=== PATIENT | female | born 1950 | race Caucasian/White ===

== ENCOUNTER 2023-10-03 08:57 | Emergency (ER) | payer SELFPAY ==
[2023-10-03] MEDS ORDERED: methylPREDNISolone SOD SUCCI 125 MG/2 ML VIAL IV STA (09:13)
[2023-10-03] MEDS ORDERED: IPRATROPIUM 0.5 MG/2.5 ML NEBU INHALATION STA (09:13)
[2023-10-03] MEDS ORDERED: SODIUM CHLORIDE 0.9% 1,000 ML IV STA (09:13)
[2023-10-03] MEDS ORDERED: ALBUTEROL NEBULIZED 2.5 MG/3 ML INHALATION STA (09:13)
--- NOTE | 2023-10-03 09:16 | ED ---
General Adult HPI - General Chief complaint: Shortness of Breath Stated complaint: ALVIN Time Seen by Provider: 10/03/23 09:00 Source: patient, RN notes reviewed, old records reviewed Mode of arrival: ambulatory Limitations: no limitations - History of Present Illness Initial comments: This is a 73-year-old female who presents emergency department with past medical history significant for pulmonary hypertension. Patient comes in today for difficulty breathing. Patient states she started with some upper respiratory symptoms like a cough and some congestion about a week ago. Patient states it's gotten progressively worse and she went to urgent care 2 days ago and has gotten worse and since that she decided come to the emergency department. Patient denies any fever chills. Patient states shortness of breath is significant. Patient states she does not have any breathing machine at home. Patient denies any chest pain or palpitations. Patient denies any back pain. Patient denies any nausea vomiting diarrhea. Patient denies any calf pain or leg swelling - Related Data Home Medications Medication Instructions Recorded Confirmed Ambrisentan 5 mg PO DAILY 10/03/23 10/03/23 Levothyroxine Sodium [Synthroid] 125 mcg PO DAILY 10/03/23 10/03/23 Pramipexole [Mirapex] 1.5 mg PO HS 10/03/23 10/03/23 Rivaroxaban [Xarelto] 20 mg PO HS 10/03/23 10/03/23 hydroCHLOROthiazide [Hydrodiuril] 25 mg PO DAILY 10/03/23 10/03/23 Previous Rx's Medication Instructions Recorded Albuterol Inhaler [Ventolin Hfa 2 puff INHALATION RT-QID #18 gm 10/03/23 Inhaler] predniSONE [Deltasone] 40 mg PO DAILY #8 tab 10/03/23 Allergies Allergy/AdvReac Type Severity Reaction Status Date / Time avocado Allergy Anaphylaxis Verified 10/03/23 10:11 Sulfa (Sulfonamide Allergy Rash/Hives Verified 10/03/23 10:11 Antibiotics) Review of Systems ROS Statement: Those systems with pertinent positive or pertinent negative responses have been documented in the HPI. ROS Other: All systems not noted in ROS Statement are negative. Past Medical History Past Medical History: Heart Failure, Hypertension, Thyroid Disorder Additional Past Medical History / Comment(s): Pulmonary HTN, Restless leg. History of Any Multi-Drug Resistant Organisms: None Reported Past Surgical History: No Surgical Hx Reported Past Psychological History: No Psychological Hx Reported Smoking Status: Never smoker Past Alcohol Use History: Occasional Past Drug Use History: None Reported General Exam - General Exam Comments Initial Comments: GENERAL: Patient is well-developed and well-nourished. Patient is nontoxic and well- hydrated and is in mild distress. ENT: Neck is soft and supple. No significant lymphadenopathy is noted. Oropharynx is clear. Moist mucous membranes. Neck has full range of motion without eliciting any pain. EYES: The sclera were anicteric and conjunctiva were pink and moist. Extraocular movements were intact and pupils were equal round and reactive to light. Eyelids were unremarkable. PULMONARY: Patient has diffuse expiratory wheezing CARDIOVASCULAR: There is a regular rate and rhythm without any murmurs gallops or rubs. ABDOMEN: Soft and nontender with normal bowel sounds. SKIN: Skin is clear with no lesions or rashes and otherwise unremarkable. NEUROLOGIC: Patient is alert and oriented x3. Cranial nerves II through XII are grossly intact. Motor and sensory are also intact. Normal speech, volume and content. Symmetrical smile. MUSCULOSKELETAL: Normal extremities with adequate strength and full range of motion. LYMPHATICS: No significant lymphadenopathy is noted PSYCHIATRIC: Normal psychiatric evaluation. Limitations: no limitations Course Vital Signs 10/03/23 10/03/23 10/03/23 09:00 09:25 09:27 Temperature 98.8 F Pulse Rate 83 73 Respiratory 24 18 18 Rate Blood Pressure 163/95 120/78 O2 Sat by Pulse 85 L 91 L Oximetry 10/03/23 10/03/23 10/03/23 09:50 10:04 10:31 Temperature Pulse Rate 74 77 78 Respiratory 20 20 18 Rate Blood Pressure 131/68 O2 Sat by Pulse 92 L Oximetry 10/03/23 11:15 Temperature Pulse Rate 80 Respiratory 18 Rate Blood Pressure 119/81 O2 Sat by Pulse 84 L Oximetry Medical Decision Making - Medical Decision Making EKG myself. EKG shows a sinus rhythm at 73 bpm VT interval 263 QRS is 96 QT interval 395. QTC is 421. Patient's EKG shows diffuse T wave inversion from V1 through V5 as well as inferior leads II, III, and F aVF. Was pt. sent in by a medical professional or institution (, PA, CHIEF CONSOLE OPERATOR, urgent care, hospital, or retirement...) When possible be specific @ -No Did you speak to anyone other than the patient for history (EMS, parent, family, police, friend...)? What history was obtained from this source @ -No Did you review nursing and triage notes (agree or disagree)? Why? @ -I reviewed and agree with nursing and triage notes Were old charts reviewed (outside hosp., previous admission, EMS record, old EKG, old radiological studies, urgent care reports/EKG's, retirement records)? Report findings @ -No old charts were reviewed Differential Diagnosis (chest pain, altered mental status, abdominal pain women, abdominal pain men, vaginal bleeding, weakness, fever, dyspnea, syncope, headache, dizziness, GI bleed, back pain, seizure, CVA, palpatations, mental health, musculoskeletal)? @ -Differential dyspnea EKG interpreted by me (3pts min.). @ -As above X-rays interpreted by me (1pt min.). @ -Chest x-ray showed concerning areas that were masslike near the hilum on both sides of the chest. CT interpreted by me (1pt min.). @ -None done U/S interpreted by me (1pt. min.). @ -None done What testing was considered but not performed or refused? (CT, X-rays, U/S, labs)? Why? @ -I ordered a computed tomography scan but patient refused to have it done What meds were considered but not given or refused? Why? @ -None Did you discuss the management of the patient with other professionals (professionals i.e. , PA, CHIEF CONSOLE OPERATOR, lab, RT, psych nurse, clinical social work aide, crisis clinician, teacher, safety instruction police officer, casework specialist)? Give summary @ -No Was smoking cessation discussed for >3mins.? @ -No Was critical care preformed (if so, how long)? @ -No Were there social determinants of health that impacted care today? How? (Homelessness, low income, unemployed, alcoholism, drug addiction, transportation, low edu. Level, literacy, decrease access to med. care, nursing home, rehab)? @ -No Was there de-escalation of care discussed even if they declined (Discuss DNR or withdrawal of care, Hospice)? DNR status @ -No What co-morbidities impacted this encounter? (DM, HTN, Smoking, COPD, CAD, Cancer, CVA, ARF, Chemo, Hep., AIDS, mental health diagnosis, sleep apnea, morbid obesity)? @ -None Was patient admitted / discharged? Hospital course, mention meds given and route, prescriptions, significant lab abnormalities, going to OR and other p ertinent info. @ -Patient's chest x-ray showed bilateral opacifications possibly masses. Patient also was oxygenating 84% after 2 breathing treatments and steroids. I told the patient I wonder admit her she refused to do a CAT scan and she refused to be admitted I spoke to her for about 10 minutes and told her the risk she continued to refuse to be admitted or have a CAT scan. The nurse went in and had a similar conversation and she continued to want to go home and sign out AMA Undiagnosed new problem with uncertain prognosis? @ -No Drug Therapy requiring intensive monitoring for toxicity (Heparin, Nitro, Insulin, Cardizem)? @ -No Were any procedures done? @ -No Diagnosis/symptom? @ -Dyspnea Acute, or Chronic, or Acute on Chronic? @ -Acute Uncomplicated (without systemic symptoms) or Complicated (systemic symptoms)? @ -Complicated Side effects of treatment? @ -No Exacerbation, Progression, or Severe Exacerbation? @ -No Poses a threat to life or bodily function? How? (Chest pain, [place], [place], pneumonia, PE, COPD, DKA, ARF, appy, cholecystitis, CVA, Diverticulitis, Homicidal, Suicidal, threat to staff... and all critical care pts) @ -She is hypoxic and this continued end organ dysfunction. Diagnosis/symptom? @ -Lung mass Acute, or Chronic, or Acute on Chronic? @ -Acute Uncomplicated (without systemic symptoms) or Complicated (systemic symptoms)? @ -Complicated Side effects of treatment? @ -none Exacerbation, Progression, or Severe Exacerbation] @ -no Poses a threat to life or bodily function? @ -no - Lab Data Result diagrams: 10/03/23 09:10/03/23 09:31 Lab Results 10/03/23 10/03/23 10/03/23 Range/Units 09:31 09:31 09:31 WBC 6.0 (3.8-10.6) k/uL RBC 4.53 (3.80-5.40) m/uL Hgb 14.4 (11.4-16.0) gm/dL Hct 42.4 (34.0-46.0) % MCV 93.6 (80.0-100.0) fL MCH 31.8 (25.0-35.0) pg MCHC 33.9 (31.0-37.0) g/dL RDW 12.4 (11.5-15.5) % Plt Count 211 (150-450) k/uL MPV 7.6 Neutrophils % 69 % Lymphocytes % 17 % Monocytes % 7 % Eosinophils % 3 % Basophils % 0 % Neutrophils # 4.1 (1.3-7.7) k/uL Lymphocytes # 1.0 (1.0-4.8) k/uL Monocytes # 0.4 (0-1.0) k/uL Eosinophils # 0.2 (0-0.7) k/uL Basophils # 0.0 (0-0.2) k/uL PT 14.5 H (10.0-12.5) sec INR 1.4 H (<1.2) APTT 26.8 (22.0-30.0) sec Sodium 138 (137-145) mmol/L Potassium 3.5 (3.5-5.1) mmol/L Chloride 101 (98-107) mmol/L Carbon Dioxide 28 (22-30) mmol/L Anion Gap 9 mmol/L BUN 9 (7-17) mg/dL Creatinine 0.74 (0.52-1.04) mg/dL Est GFR (CKD-EPI)AfAm >90 (>60 ml/min/1.73 sqM) Est GFR (CKD-EPI)NonAf 80 (>60 ml/min/1.73 sqM) Glucose 107 H (74-99) mg/dL Plasma Lactic Acid Catarino (0.7-2.0) mmol/L Calcium 8.1 L (8.4-10.2) mg/dL Magnesium 2.2 (1.6-2.3) mg/dL Total Bilirubin 1.0 (0.2-1.3) mg/dL AST 27 (14-36) U/L ALT 20 (4-34) U/L Alkaline Phosphatase 54 (38-126) U/L Troponin I (0.000-0.034) ng/mL Total Protein 6.0 L (6.3-8.2) g/dL Albumin 3.0 L (3.5-5.0) g/dL Influenza Type A (PCR) (Not Detectd) Influenza Type B (PCR) (Not Detectd) RSV (PCR) (Not Detectd) SARS-CoV-2 (PCR) (Not Detectd) 10/03/23 10/03/23 10/03/23 Range/Units 09:31 09:31 09:31 WBC (3.8-10.6) k/uL RBC (3.80-5.40) m/uL Hgb (11.4-16.0) gm/dL Hct (34.0-46.0) % MCV (80.0-100.0) fL MCH (25.0-35.0) pg MCHC (31.0-37.0) g/dL RDW (11.5-15.5) % Plt Count (150-450) k/uL MPV Neutrophils % % Lymphocytes % % Monocytes % % Eosinophils % % Basophils % % Neutrophils # (1.3-7.7) k/uL Lymphocytes # (1.0-4.8) k/uL Monocytes # (0-1.0) k/uL Eosinophils # (0-0.7) k/uL Basophils # (0-0.2) k/uL PT (10.0-12.5) sec INR (<1.2) APTT (22.0-30.0) sec Sodium (137-145) mmol/L Potassium (3.5-5.1) mmol/L Chloride (98-107) mmol/L Carbon Dioxide (22-30) mmol/L Anion Gap mmol/L BUN (7-17) mg/dL Creatinine (0.52-1.04) mg/dL Est GFR (CKD-EPI)AfAm (>60 ml/min/1.73 sqM) Est GFR (CKD-EPI)NonAf (>60 ml/min/1.73 sqM) Glucose (74-99) mg/dL Plasma Lactic Acid Catarino 1.0 (0.7-2.0) mmol/L Calcium (8.4-10.2) mg/dL Magnesium (1.6-2.3) mg/dL Total Bilirubin (0.2-1.3) mg/dL AST (14-36) U/L ALT (4-34) U/L Alkaline Phosphatase (38-126) U/L Troponin I 0.012 (0.000-0.034) ng/mL Total Protein (6.3-8.2) g/dL Albumin (3.5-5.0) g/dL Influenza Type A (PCR) Not Detected (Not Detectd) Influenza Type B (PCR) Not Detected (Not Detectd) RSV (PCR) Not Detected (Not Detectd) SARS-CoV-2 (PCR) Not Detected (Not Detectd) Disposition Clinical Impression: Dyspnea, Lung mass Disposition: LEFT AGAINST MEDICAL ADVICE Instructions (If sedation given, give patient instructions): Bronchospasm (ED), Dyspnea (ED) Prescriptions: predniSONE [Deltasone] 40 mg PO DAILY #8 tab Albuterol Inhaler [Ventolin Hfa Inhaler] 2 puff INHALATION RT-QID #18 gm Is patient prescribed a controlled substance at d/c from ED?: No Referrals: None,Stated [REFERRING] - 1-2 days Time of Disposition: 11:34
[2023-10-03 09:44] LABS: Basophils % (A) 0 %; Eosinophils # (A) 0.2 k/uL (0-0.7); Eosinophils % (A) 3 %; HCT 42.4 % (34.0-46.0); HGB 14.4 gm/dL (11.4-16.0); Lymphocytes % (A) 17 %; MCH 31.8 pg (25.0-35.0); MCHC 33.9 g/dL (31.0-37.0); MCV 93.6 fL (80.0-100.0); Mean Platelet Volume 7.6; Monocytes # (A) 0.4 k/uL (0-1.0); Monocytes % (A) 7 %; Neutrophils # (A) 4.1 k/uL (1.3-7.7); Neutrophils % (A) 69 %; Platelet Count 211 k/uL (150-450); RBC 4.53 m/uL (3.80-5.40); RDW 12.4 % (11.5-15.5)
[2023-10-03 09:57] LABS: INR 1.4 (<1.2); Partial Thromboplastin Time 26.8 sec (22.0-30.0); Prothrombin Time 14.5 sec (10.0-12.5)
[2023-10-03 10:04] LABS: ALT 20 U/L (4-34); AST 27 U/L (14-36); African American GFR (CKD) >90 (>60 ml/min/1.73 sqM); Alkaline Phosphatase 54 U/L (38-126); Anion Gap 9 mmol/L; Blood Urea Nitrogen 9 mg/dL (7-17); Calcium 8.1 mg/dL (8.4-10.2); Carbon Dioxide 28 mmol/L (22-30); Chloride 101 mmol/L (98-107); Glucose 107 mg/dL (74-99); Magnesium 2.2 mg/dL (1.6-2.3); Non-African American GFR(CKD) 80 (>60 ml/min/1.73 sqM); Potassium 3.5 mmol/L (3.5-5.1); Sodium 138 mmol/L (137-145)
--- NOTE | 2023-10-03 10:47 | XR ---
EXAMINATION TYPE: XR chest 2V DATE OF EXAM: 10/03/2023 9:46 AM CLINICAL INDICATION:Female, 73 years old with history of difficulty breathing; [facility] COMPARISON: None TECHNIQUE: XR chest 2V. Frontal PA and lateral views of the chest. FINDINGS: Lines/Tubes: EKG leads overlie the chest. No indwelling lines are seen. Heart/mediastinum: Cardiomediastinal silhouette is enlarged. Heart appears mildly enlarged. Partially calcified, somewhat tortuous aorta. There could be mediastinal adenopathy and/or enlargement of the pulmonary arteries. Pulmonary vascularity: Mild pulmonary venous congestion. Lungs/Pleura: Masslike densities over the right hilum and left suprahilar region, concerning for mass es and/or adenopathy. Smaller lung nodules may not be radiographically apparent. There is mild diffus e interstitial coarsening and mild hyperinflation, suggesting a background of COPD. There is otherwis e no evidence of focal airspace consolidation, or pneumothorax. Minimal blunting of the posterior co stophrenic angles, suggesting small effusions. Musculoskeletal: No acute osseous abnormality demonstrated in the limits of the exam. Osteopenia and mild/moderate degenerative changes of the spine and shoulders. Mild height loss of a couple of lower thoracic region vertebrae, age indeterminate. Other findings: None. IMPRESSION: Abnormal examination, as above. Recommend contrast CT chest in the near future for further evaluation .
[2023-10-03 10:49] VITALS: RESP 18
[2023-10-03 11:37] VITALS: BP 118/70; PULSE 80
[2023-10-03 11:38] VITALS: TEMP 98.4
== END 2023-10-03 11:41 | disposition left against medical advice (07) ==
LOC: EC 08:57
DX: R06.00 Dyspnea, unspecified (principal); R91.8 Other nonspecific abnormal finding of lung field; I11.0 Hypertensive heart disease with heart failure; E07.9 Disorder of thyroid, unspecified; I50.9 Heart failure, unspecified; Z79.890 Hormone replacement therapy; Z20.822 Contact with and (suspected) exposure to COVID-19; Z53.29 Procedure and treatment not carried out because of patient's decision for other reasons; Z88.2 Allergy status to sulfonamides; Z88.8 Allergy status to other drugs, medicaments and biological substances
CPT/HCPCS: 36415; 94640; 93005; 80053; 83605; 83735; 84484; 85025; 85610; 85730; 87040; 87077; 87186; 87636; 71046; 99285; 96374; 96361; J2930

== ENCOUNTER 2023-10-03 11:51 | Inpatient (IN) | payer SELFPAY ==
--- NOTE | 2023-10-03 13:08 | ED ---
General Adult HPI - General Chief complaint: Shortness of Breath Stated complaint: Cough Time Seen by Provider: 10/03/23 12:17 Source: patient, RN notes reviewed, old records reviewed Mode of arrival: ambulatory Limitations: no limitations - History of Present Illness Initial comments: This is a 73-year-old female that was seen earlier in the emergency department left AMA with an oxygenation of 84% on room air and a CAT scan ordered that she refused to get. Patient states she talked with Dr. Alvarez's office and they told her to get back to the ER and be admitted. She states her shortness of breath is still there and she will now get the CAT scan. Patient denies any new symptoms since leaving less than an hour ago - Related Data Home Medications Medication Instructions Recorded Confirmed Ambrisentan 5 mg PO DAILY 10/03/23 10/03/23 Levothyroxine Sodium [Synthroid] 125 mcg PO DAILY 10/03/23 10/03/23 Pramipexole [Mirapex] 1.5 mg PO HS 10/03/23 10/03/23 Rivaroxaban [Xarelto] 20 mg PO HS 10/03/23 10/03/23 hydroCHLOROthiazide [Hydrodiuril] 25 mg PO DAILY 10/03/23 10/03/23 Previous Rx's Medication Instructions Recorded Albuterol Inhaler [Ventolin Hfa 2 puff INHALATION RT-QID #18 gm 10/03/23 Inhaler] predniSONE [Deltasone] 40 mg PO DAILY #8 tab 10/03/23 Allergies Allergy/AdvReac Type Severity Reaction Status Date / Time avocado Allergy Anaphylaxis Verified 10/03/23 12:00 Sulfa (Sulfonamide Allergy Rash/Hives Verified 10/03/23 12:00 Antibiotics) Review of Systems ROS Statement: Those systems with pertinent positive or pertinent negative responses have been documented in the HPI. ROS Other: All systems not noted in ROS Statement are negative. Past Medical History Past Medical History: Heart Failure, Hypertension, Thyroid Disorder Additional Past Medical History / Comment(s): Pulmonary HTN, Restless leg. History of Any Multi-Drug Resistant Organisms: None Reported Past Surgical History: No Surgical Hx Reported Past Psychological History: No Psychological Hx Reported Smoking Status: Never smoker Past Alcohol Use History: Occasional Past Drug Use History: None Reported General Exam - General Exam Comments Initial Comments: GENERAL: Patient is well-developed and well-nourished. Patient is nontoxic and well- hydrated and is in no acute distress. ENT: Neck is soft and supple. No significant lymphadenopathy is noted. Oropharynx is clear. Moist mucous membranes. Neck has full range of motion without eliciting any pain. EYES: The sclera were anicteric and conjunctiva were pink and moist. Extraocular movements were intact and pupils were equal round and reactive to light. Eyelids were unremarkable. PULMONARY: Unlabored respirations. Good breath sounds bilaterally. Expiratory wheezing CARDIOVASCULAR: There is a regular rate and rhythm without any murmurs gallops or rubs. ABDOMEN: Soft and nontender with normal bowel sounds. SKIN: Skin is clear with no lesions or rashes and otherwise unremarkable. NEUROLOGIC: Patient is alert and oriented x3. Cranial nerves II through XII are grossly intact. Motor and sensory are also intact. Normal speech, volume and content. Symmetrical smile. MUSCULOSKELETAL: Normal extremities with adequate strength and full range of motion. No lower extremity swelling or edema. No calf tenderness. LYMPHATICS: No significant lymphadenopathy is noted PSYCHIATRIC: Normal psychiatric evaluation. Limitations: no limitations Course Vital Signs 10/03/23 10/03/23 11:58 12:35 Temperature 98.4 F Pulse Rate 81 Respiratory 22 24 Rate Blood Pressure 134/78 O2 Sat by Pulse 85 L Oximetry Medical Decision Making - Medical Decision Making Was pt. sent in by a medical professional or institution ([facility], OUTSIDE MACHINIST APPRENTICE, urgent care, hospital, or retirement...) When possible be specific @ -Patient's primary medical care doctor sent the patient and be evaluated Did you speak to anyone other than the patient for history (EMS, parent, family, police, friend...)? What history was obtained from this source @ -No Did you review nursing and triage notes (agree or disagree)? Why? @ -I reviewed and agree with nursing and triage notes Were old charts reviewed (outside hosp., previous admission, EMS record, old EK G, old radiological studies, urgent care reports/EKG's, retirement records)? Report findings @ -I reviewed prior charts earlier today in this patient prior lab work department radiological studies Differential Diagnosis (chest pain, altered mental status, abdominal pain women, abdominal pain men, vaginal bleeding, weakness, fever, dyspnea, syncope, headache, dizziness, GI bleed, back pain, seizure, CVA, palpatations, mental health, musculoskeletal)? @ -Differential Dyspnea: Coronary syndrome, arrhythmia, tamponade, asthma, COPD, pulmonary embolism, pneumonia, pneumothorax, pulmonary effusion, anaphylaxis, diabetic ketoacidosis, flailed chest, pulmonary contusion, diaphragmatic rupture, anemia, neuromuscular, this is not meant to be an all-inclusive list. EKG interpreted by me (3pts min.). @ -As above X-rays interpreted by me (1pt min.). @ -None done CT interpreted by me (1pt min.). @ -Computed tomography scan shows masslike consolidation bilaterally U/S interpreted by me (1pt. min.). @ -None done What testing was considered but not performed or refused? (CT, X-rays, U/S, labs)? Why? @ -None What meds were considered but not given or refused? Why? @ -None Did you discuss the management of the patient with other professionals (professionals i.e. , PA, OUTSIDE MACHINIST APPRENTICE, lab, RT, psych nurse, licensed social worker, training associate, teacher, adult probation officer, casework manager)? Give summary @ -I spoke with Dr. Alvarez he agreed to admit the patient admitted the patient I wrote admitting orders I consult the pulmonary Was smoking cessation discussed for >3mins.? @ -No Was critical care preformed (if so, how long)? @ -No Were there social determinants of health that impacted care today? How? (Homelessness, low income, unemployed, alcoholism, drug addiction, transportation, low edu. Level, literacy, decrease access to med. care, retirement, rehab)? @ -No Was there de-escalation of care discussed even if they declined (Discuss DNR or withdrawal of care, Hospice)? DNR status @ -No What co-morbidities impacted this encounter? (DM, HTN, Smoking, COPD, CAD, Cancer, CVA, ARF, Chemo, Hep., AIDS, mental health diagnosis, sleep apnea, morbid obesity)? @ -None Was patient admitted / discharged? Hospital course, mention meds given and route, prescriptions, significant lab abnormalities, going to OR and other pertinent info. @ -Patient's CT shows masslike consolidations. I spoke with Dr. Alvarez he agrees patient should be admitted I admitted the patient I consult Dr. Quintero for further evaluation Undiagnosed new problem with uncertain prognosis? @ -No Drug Therapy requiring intensive monitoring for toxicity (Heparin, Nitro, Insulin, Cardizem)? @ -No Were any procedures done? @ -No Diagnosis/symptom? @ -Lung masses Acute, or Chronic, or Acute on Chronic? @ -Acute on chronic Uncomplicated (without systemic symptoms) or Complicated (systemic symptoms)? @ -Complicated Side effects of treatment? @ -No Exacerbation, Progression, or Severe Exacerbation? @ -No Poses a threat to life or bodily function? How? (Chest pain, [place], [place], pneumonia, PE, COPD, DKA, ARF, appy, cholecystitis, CVA, Diverticulitis, Homicidal, Suicidal, threat to staff... and all critical care pts) @ -Yes this could be malignant and cause further morbidity and mortality Disposition Clinical Impression: Acute bronchospasm, Lung mass Disposition: ADMITTED IP TO THIS HOSP Referrals: Loki Alvarez MD [Primary Care Provider] - 1-2 days Time of Disposition: 15:28
--- NOTE | 2023-10-03 15:05 | CT ---
EXAMINATION TYPE: CT chest angio for PE DATE OF EXAM: 10/03/2023 COMPARISON: Radiograph same day HISTORY: 73 year-old female shortness of breath, Dyspnea TECHNIQUE: Contiguous axial scanning of the chest performed with IV Contrast, patient injected with 1 00 ml mL of Isovue 370. Coronal and sagittal MIP reconstructions performed. CT DLP: 243.8 mGycm Automated exposure control for dose reduction was used. FINDINGS: The heart is borderline enlarged without pericardial effusion. No reflux of contrast into the hepatic veins. Scattered three-vessel coronary artery calcifications are present. Ectatic ascending aorta 3.6 cm within the chart. Branching anatomy. Prominent 1.1 cm precarinal lymph node. Prominent right hilar lymph node at 1.3 cm. Prominent left hilar lymph node measuring 1.3 cm. Markedly enlarged main right and left pulmonary arteries measuring up to 3.9 cm compatible with under lying pulmonary hypertension. No pulmonary embolus is seen. There is focal peribronchovascular consolidation in the left suprahilar region measuring 5.5 cm. Patc hy consolidation anteromedial right mid lunge. Additional patchy changes are present at the left greater than right lung bases with trace bilateral pleural effusions. 6 mm right basilar pulmonary nodule for which follow-up is recommended. Underlying mild emphysematous change. Small hiatal hernia. Visualized upper abdomen otherwise shows no gross abnormality. The extreme poste rior costophrenic angles in this limited review. Bones: Chronic appearing anterior wedge deformity T10 vertebral body. Moderate degenerative disc dise ase. IMPRESSION: 1. NO EVIDENCE FOR PULMONARY EMBOLUS. 2. BORDERLINE CARDIOMEGALY AND SEVERE ENLARGEMENT OF THE MAIN RIGHT AND LEFT PULMONARY ARTERIES UP TO 3.9 CM COMPATIBLE WITH PULMONARY ARTERIAL HYPERTENSION. GIVEN THE DEGREE OF ENLARGEMENT, RECOMMEND P [facility] REFERRAL FOR FURTHER WORKUP AND EVALUATION. 3. FOCAL LEFT SUPRAHILAR MASSLIKE CONSOLIDATION MEASURING UP TO 5.5 CM. AIRSPACE DISEASE ANTEROMEDIAL RIGHT MID LUNG. ADDITIONAL AIRSPACE DISEASE LEFT GREATER THAN RIGHT LUNG BASES WITH TRACE EFFUSIONS. CONSIDER MULTIFOCAL OR ATYPICAL PNEUMONIAS. FOLLOW-UP AFTER TREATMENT SUCH AN 3-4 WEEKS TO EXCLUD E NEOPLASM IN THE LEFT SUPRAHILAR REGION. 4. SOME SCATTERED MILD ADENOPATHY ESPECIALLY AT THE HILAR REGIONS IS LIKELY REACTIVE. THESE SHOULD AL SO BE REASSESSED AT FOLLOW-UP.
[2023-10-03] MEDS ORDERED: IPRATROPIUM-ALBUTEROL 3 ML NEB INHALATION PRN (15:29)
[2023-10-03] MEDS ORDERED: NALOXONE 0.4 MG/ML 1 ML VIAL IVP PRN (15:29)
[2023-10-03] MEDS: IPRATROPIUM-ALBUTEROL 3 ML NEB INHALATION SCH ×2 (16:10→20:02)
[2023-10-03] MEDS: methylPREDNISolone SOD SUCCI 125 MG/2 ML VIAL IV SCH (17:47)
[2023-10-03] MEDS: SYMBICORT 160-4.5 MCG INHALER INHALATION SCH (20:02)
[2023-10-03] MEDS: AZITHROMYCIN 500 MG in SODIUM CHLORIDE 0.9% 250 ML IVPB SCH (21:33)
[2023-10-03] MEDS: PRAMIPEXOLE 0.5 MG TAB PO SCH (21:43)
[2023-10-03] MEDS: RIVAROXABAN 20 MG TAB PO SCH (21:43)
[2023-10-04] MEDS: methylPREDNISolone SOD SUCCI 125 MG/2 ML VIAL IV SCH ×4 (00:07→17:34)
[2023-10-04] MEDS: LEVOTHYROXINE 125 MCG TAB PO SCH (06:04)
[2023-10-04] MEDS: IPRATROPIUM-ALBUTEROL 3 ML NEB INHALATION SCH ×4 (07:50→22:05)
[2023-10-04] MEDS: SYMBICORT 160-4.5 MCG INHALER INHALATION SCH ×2 (07:50→22:06)
[2023-10-04] MEDS: hydroCHLOROthiazide 25 MG TAB PO SCH (09:17)
[2023-10-04] MEDS: PANTOPRAZOLE 40 MG TABLET PO SCH (09:17)
[2023-10-04] MEDS: AMBRISENTAN 5 MG PO SCH (09:18)
[2023-10-04 11:23] LABS: Basophils # (A) 0 X 10*3/uL (0.00-0.10); Basophils % (A) 0 %; Eosinophils # (A) 0 X 10*3/uL (0.04-0.35); Eosinophils % (A) 0 %; HCT 37.8 % (37.2-46.3); HGB 12.8 g/dL (12.0-15.0); Lymphocytes # (A) 0.65 X 10*3/uL (0.90-5.00); MCH 31.3 pg (27.0-32.0); MCHC 33.9 g/dL (32.0-37.0); MCV 92.4 FL (80.0-97.0); Monocytes # (A) 0.18 X 10*3/uL (0.20-1.00); Monocytes % (A) 1.7 %; NRBC Per 100 WBC 0 X 10*3/uL (0.00-0.01); Neutrophils # (A) 9.89 X 10*3/uL (1.80-7.70); Neutrophils % (A) 91.8 %; Platelet Count 264 X 10*3/uL (140-440); RBC 4.09 X 10*6/uL (4.10-5.20); RDW 12.1 % (11.5-14.5); WBC 10.77 X 10*3/uL (4.50-10.00)
[2023-10-04 11:30] LABS: ALT 21 U/L (8-44); AST 21 U/L (13-35); Albumin 3.1 g/dL (3.8-4.9); Albumin/Globulin Ratio 1.35 Ratio (1.60-3.17); Alkaline Phosphatase 52 U/L (41-126); BUN/Creat Ratio 12.88 Ratio (12.00-20.00); Blood Urea Nitrogen 10.3 mg/dL (9.0-27.0); Calcium 8.3 mg/dL (8.7-10.3); Carbon Dioxide 27.5 mmol/L (21.6-31.8); Chloride 102 mmol/L (96-109); Globulin 2.3 g/dL (1.6-3.3); Glucose 166 mg/dL (70-110); Potassium 3.5 mmol/L (3.5-5.5); Sodium 139 mmol/L (135-145); Total Bilirubin 0.2 mg/dL (0.3-1.2); Total Protein 5.4 g/dL (6.2-8.2)
--- NOTE | 2023-10-04 11:55 | P.CNPUL ---
History of Present Illness Consult date: 10/04/23 Requesting physician: Loki Alvarez Reason for consult: dyspnea, cough, abnormal CXR/CT Chief complaint: Tightness of breath, cough, congestion History of present illness: This a very pleasant 73-year-old female patient with a known history of primary pulmonary hypertension diagnosed approximately 20 years ago. She has been maintained on Xarelto and ambrisentan. Has has a history of hypothyroidism, hypertension, remote former smoker. She is originally from [place] but has been here in the [facility] approximate 1 year following her marriage. She has not been seen by a audio visual specialist. She states she did have home oxygen [place] but had not required any since she's been here. She presented to our emergency room yesterday morning with complaints of increasing shortness of breath cough and congestion. Denied any sick contacts. Denied any recent travel. Her chest x-ray revealed masslike densities over the right hilum and left suprahilar region concerning for masses and/or adenopathy. Smaller lung nodules not seen radiographically. There is mild diffuse interstitial coarsening of mild hyper inflation suggestive background COPD. No pneumothorax. No focal airspace consolidation. She did have a room air oxygen of 84%. She was recommended CT scan but had refused. The patient was to be admitted but had left AMA. She had spoken to her primary care providers office who instructed her to return to the emergency room which she did. CT angiogram ruled out pulmonary embolus. There was borderline cardiomegaly with severe enlargement of the main right and left pulmonary arteries up to 3.9 cm compatible with pulmonary hypertension. Focal left suprahilar masslike consolidation measuring up to 5.5 cm. Airspace disease anteromedial right midlung. Additional airspace disease left greater than right lung bases with trace effusions. Some scattered mild adenopathy especially in the hilar regions likely reactive. White count 10.7. Hemoglobin 12.8. Platelets 264. Sodium 139. Potassium 3.5. Bicarb 28. BUN 10. Creatinine 0.8. Glucose 166. AST 21. ALT 21. Carcinoembryonic antigen less than 2.0. She is seen today in consultation on the regular medical floor. She is resting quite comfortably in bed. Awake and alert in no acute distress. She is requiring 4 L oxygen per nasal cannula to maintain O2 saturations in the 90s. She is feeling a bit better today compared to yesterday. She is still short of breath with exertion. Still with a loose nonproductive cough. She's been initiated and DuoNeb inhalations, Symbicort, IV Solu-Medrol. Antibiotics in the form of ceftriaxone and azithromycin. She is anticoagulated with Xarelto. Pro- calcitonin pending. Review of Systems REVIEW OF SYSTEMS: CONSTITUTIONAL: Denies any recent significant weight loss or weight gain. EYES: Denies change in vision. EARS, NOSE, MOUTH, THROAT: Denies headaches, denies sore throat. CARDIOVASCULAR: Denies chest pain, palpitations or syncopal episodes. RESPIRATORY: Positive for shortness of breath, cough, congestion no hemoptysis. GASTROINTESTINAL: Denies change in appetite, denies abdominal pain GENITOURINARY: Denies hematuria, denies infections. MUSKULOSKELETAL: Denies pain, denies swelling. INTEGUMENTARY: Denies rash, denies eczema. NEUROLOGICAL: Denies recent memory loss, no recent seizure activity. PSYCHIATRIC: Denies anxiety, denies depression. HEMATOLOGIC/LYMPHATIC: Denies anemia, denies enlarged lymph nodes. Past Medical History Past Medical History: Heart Failure, Hypertension, Thyroid Disorder Additional Past Medical History / Comment(s): Pulmonary HTN, Restless leg. History of Any Multi-Drug Resistant Organisms: None Reported Past Surgical History: Hysterectomy Past Anesthesia/Blood Transfusion Reactions: No Reported Reaction Past Psychological History: No Psychological Hx Reported Smoking Status: Never smoker Past Alcohol Use History: Occasional Additional Past Alcohol Use History / Comment(s): smoked a few years while in her 20's Past Drug Use History: None Reported Medications and Allergies Home Medications Medication Instructions Recorded Confirmed Type Albuterol Inhaler [Ventolin Hfa 2 puff INHALATION RT-QID #18 gm 10/03/23 10/03/23 Rx Inhaler] Ambrisentan 5 mg PO DAILY 10/03/23 10/03/23 History Levothyroxine Sodium [Synthroid] 125 mcg PO DAILY 10/03/23 10/03/23 History Pramipexole [Mirapex] 1.5 mg PO HS 10/03/23 10/03/23 History Rivaroxaban [Xarelto] 20 mg PO HS 10/03/23 10/03/23 History Symbicort 200-6mcg 2 puff INHALATION RT-BID 10/03/23 10/03/23 History hydroCHLOROthiazide [Hydrodiuril] 25 mg PO DAILY 10/03/23 10/03/23 History predniSONE [Deltasone] 40 mg PO DIRECTED 10/03/23 10/03/23 History Allergies Allergy/AdvReac Type Severity Reaction Status Date / Time avocado Allergy Anaphylaxis Verified 10/03/23 15:48 Sulfa (Sulfonamide Allergy Rash/Hives Verified 10/03/23 15:48 Antibiotics) Physical Exam Vitals: Vital Signs Temp Pulse Pulse Resp BP BP BP 10/04/23 11:37 88 10/04/23 11:26 88 10/04/23 08:04 88 10/04/23 07:50 88 10/04/23 07:20 98.5 F 79 16 131/75 10/04/23 02:20 98.1 F 80 19 121/67 10/03/23 20:12 84 10/03/23 20:02 84 10/03/23 19:03 98.1 F 84 19 129/74 10/03/23 17:24 98.3 F 84 19 132/74 10/03/23 16:58 98.6 F 72 20 127/67 10/03/23 16:17 80 20 10/03/23 16:10 84 18 10/03/23 15:48 79 20 122/66 10/03/23 12:35 24 10/03/23 11:58 98.4 F 81 22 134/78 Pulse Ox 10/04/23 11:37 10/04/23 11:26 10/04/23 08:04 10/04/23 07:50 10/04/23 07:20 92 L 10/04/23 02:20 91 L 10/03/23 20:12 10/03/23 20:02 10/03/23 19:03 93 L 10/03/23 17:24 90 L 10/03/23 16:58 88 L 10/03/23 16:17 10/03/23 16:10 10/03/23 15:48 90 L 10/03/23 12:35 10/03/23 11:58 85 L Intake and Output 10/03/23 10/04/23 10/04/23 22:59 06:59 14:59 Output Total 300 Balance -300 Output: Urine 300 Other: Voiding Method Toilet Toilet Weight 73.482 kg 76 kg GENERAL EXAM: Alert, very pleasant 73-year-old female, on 4 L nasal cannula, comfortable in no apparent distress. HEAD: Normocephalic. EYES: Normal reaction of pupils, equal size. NOSE: Clear with pink turbinates. THROAT: No erythema or exudates. NECK: No masses, no JVD. CHEST: No chest wall deformity. LUNGS: Equal air entry with bilateral scattered rhonchi, end expiratory wheeze. CVS: S1 and S2 normal with no audible murmur, regular rhythm. ABDOMEN: No hepatosplenomegaly, normal bowel sounds, no guarding or rigidity. SPINE: No scoliosis or deformity SKIN: No rashes CENTRAL NERVOUS SYSTEM: No focal deficits, tone is normal in all 4 extremities. EXTREMITIES: There is no peripheral edema. No clubbing, no cyanosis. Peripheral pulses are intact. Results - Laboratory Findings CBC and BMP: 10/04/23 06:04 10/04/23 06:04 Abnormal lab findings: Abnormal Labs 10/04/23 10/04/23 06:04 06:04 WBC 10.77 H RBC 4.09 L Immature Gran # 0.05 H Neutrophils # 9.89 H Lymphocytes # 0.65 L Monocytes # 0.18 L Eosinophils # 0 L Glucose 166 H Calcium 8.3 L Total Bilirubin 0.2 L Total Protein 5.4 L Albumin 3.1 L Albumin/Globulin Ratio 1.35 L - Diagnostic Findings Chest x-ray: image reviewed CT scan - chest: image reviewed Assessment and Plan Assessment: Acute hypoxemic respiratory failure secondary to an acute community-acquired pneumonia. Her chest x-ray revealed masslike densities over the right hilum and left suprahilar region concerning for masses and/or adenopathy. Smaller lung nodules not seen radiographically. There is mild diffuse interstitial coarsening of mild hyper inflation suggestive background COPD. No pneumothorax. No focal airspace consolidation. She did have a room air oxygen of 84%. She was recommended CT scan but had refused. The patient was to be admitted but had left AMA. She had spoken to her primary care providers office who instructed he r to return to the emergency room which she did. CT angiogram ruled out pulmonary embolus. There was borderline cardiomegaly with severe enlargement of the main right and left pulmonary arteries up to 3.9 cm compatible with pulmonary hypertension. Focal left suprahilar masslike consolidation measuring up to 5.5 cm. Airspace disease anteromedial right midlung. Additional airspace disease left greater than right lung bases with trace effusions. Some scattered mild adenopathy especially in the hilar regions likely reactive. Pro calcitonin pending. Initiated on ceftriaxone and azithromycin Primary pulmonary hypertension diagnosed approximately 20 years ago. Maintained on ambrisentan and intake related with Xarelto. Oxygen dependent Hypothyroidism Hypertension Plan: The patient was seen and evaluated Chest x-ray, CAT scan, labs and medications reviewed Continue ceftriaxone and azithromycin Continue DuoNeb inhalations, Symbicort Continue steroids Anticoagulated with Xarelto Continue her ambrisentan Titrate the FiO2 as tolerated Most likely will qualify for home oxygen She has not been on it since living here in [place] Will require follow-up chest x-ray/CAT scans If any procedures required she prefers to do them in [place] We will continue to follow and make further recommendations based on her clinical status I have personally seen and examined the patient, performed the documentation and the assessment and plan as written. Number of minutes spent on the visit: 20.
[2023-10-04 12:52] VITALS: BMI 27.0
--- NOTE | 2023-10-04 13:48 | P.HPIM ---
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 supposed to be on oxygen 2 L nasal cannula that she keeps in [place] but she does not have it in [place] she also had a computed tomography scan of the chest with the month ago that did not show any evidence of acute of normalities, apparently the patient also had a history of hypothyroidism, history of gastroesophageal reflux disease, osteoarthritis and osteoporosis, patient presented to the emergency department at [facility] the day before yesterday with increased shortness of breath associated with increased coughing and minimal from production, patient was having significant amount of wheezing, apparently I been taking care of her for quite sometime, now and he asked me if I can give her some oxygen I asked her to go to the ER for evaluation she was offered to send hospital last night however she signed off AGAINST MEDICAL ADVICE, she came back to the office today and she was instructed back to the ER because her oxygenation was around 82% room air, patient was back to the emergency department, had a computed tomography scan of the chest that showed evidence of significant consult with process appear like masslike in the suprahilar in the left as well as the mid lung suggestive of multilobar pneumonia with reactive lymphadenopathy, no evidence of bowel rib was, there was evidence of portal hypertension as well, patient was started on Solu-Medrol 60 mg IVP every 6 hours, Rocephin 1 g IV piggyback every 24 hours, Zithromax 500 mg piggyback every 24 hours, sputum cultures were obtained, blood culture, also check urine Legionella antigen and mycoplasma antibodies IgG and IgM. Patient was started on DuoNeb treatment nebulization 4 times every day, oxygen support, we will follow the patient very closely pulmonary consultation was obtained from Dr. Dorado REVIEW OF SYSTEMS: Constitutional: No documented fever, no chills, no night sweats. No weight change. No weakness, fatigue or lethargy. No daytime sleepiness. EENT: No headache. No blurred vision or double vision, no loss of vision. No loss of Hearing, no ringing in the ears, no dizziness. No nasal drainage or congestion. No epistaxis. No sore throat. Lungs: positive for shortness of breath, positive for cough, minimal sputum production. positive for wheezing. Reports dyspnea with activity. Cardiovascular: No chest pain, no lower extremity edema. No palpitations. No paroxysmal nocturnal dyspnea. No orthopnea. No lightheadedness or dizziness. No syncopal episodes. Abdominal: Reports abdominal pain. No nausea, vomiting. No diarrhea. No constipation. No bloody or tarry stools reports loss of appetite. Genitourinary: No dysuria, increased frequency, urgency. No urinary retention. Musculoskeletal: No myalgias. No muscle weakness, no gait dysfunction, no frequent falls. No back pain. No neck pain. Integumentary: No wounds, no lesions. No rash or pruritus. No unusual bruising. No change in hair or nails. Neurologic: No aphasia. No facial droop. No change in mentation. No head injury. No headache. No paralysis. No paresthesia. Psychiatric: No depression. No anxiety. No mood swings. Endocrine: No abnormal blood sugars. No weight change. PAST MEDICAL HISTORY: Primary pulmonary hypertension Hypothyroidism Osteoarthritis Osteoporosis GERD Hyperlipidemia Hypertension and hypertensive cardiovascular disease PAST SURGICAL HISTORY: Total abdominal hysterectomy and bilateral salpingo- oophorectomy T+A SOCIAL HISTORY: Patient smoked a pack a a day from 18 till she was 23 , she drinks occasionally, she denies any drug usual prescriptions with her . FAMILY HISTORY: Mother at the age of 95 from thoracic aortic aneurysm and had perforated colon. father at the age 74 from CVA, she has on brother ok PHYSICAL EXAMINATION: General: 73-year-old female laying down in bed in moderate respiratory distress. HEENT: Head is atraumatic, normocephalic, pupils were equal round reactive to light and recommendation, extraocular muscle movement were intact, sclera nonicteric, conjunctivae were pale, mucous membranes of the mouth are somewhat dry. Neck: Supple, no JVP, normal carotid upstroke bilaterally, no lymphadenopathy. Chest: Decreased breath sounds at the bases, few rhonchi, positive for expiratory wheezes, no chest wall tenderness, minimal intercostal retractions. Heart: First heart sound is normal, second heart sound is normal there is systolic ejection murmur 2/6 in the left sternal border. Abdomen: Soft, nontender, nondistended, positive bowel sounds. Extremities: There is no edema no calf tenderness DP +2 bilaterally. Neurologic examination: Patient is awake alert and oriented X 3, cranial nerves II-12 appear grossly intact, muscle power were 5 out of 5 in upper extremities and 5 out of 5 in bilateral lower extremities, deep tendon reflexes normal bilaterally. ASSESSMENT AND PLAN: 1. Multilobar pneumonia likely community-acquired pneumonia in a patient with underlying primary portal hypertension. Patient will be started on oxygen 4 L nasal cannula, she will be started on Solu-Medrol 60 mg IV push every 6 hours, Rocephin 1 g IV piggyback every 24 hours, Zithromax 500 mg piggyback every 24 hours, DuoNeb 3 mL nebulization 4 times every day, sputum culture, blood cultures, urine Legionella antigen, mycoplasma IgG and IgM, Pulmonary consultation. 2. Primary pulmonary hypertension. Continue patient on Ambrisantan 5 mg orally once every day, continue patient on Xarelto 20 mg orally once every day, 3. Hypertension and hypertensive cardiovascular disease. Continue hy drochlorothiazide 25 mg orally once every day. 4. Hyperlipidemia. Patient is not taking this at this point in time. 5. Hypothyroidism. Continue Synthroid 125 g orally once every day. 6. Osteoarthritis. Continue Tylenol for pain control. 7. Osteoporosis. Patient will need to be evaluated as an outpatient. 8. Restless leg syndrome. Continue Mirapex 1.5 mg at bedtime. 9. DVT prophylaxis. Continue Xarelto 20 mg orally once every day. 10. GI prophylaxis. Continue patient on Protonix 40 mg orally once every day. 11. Admitted to inpatient. Estimate a length of stay 2 midnights. 12. Patient is full code. Past Medical History Past Medical History: Heart Failure, Hypertension, Thyroid Disorder Additional Past Medical History / Comment(s): Pulmonary HTN, Restless leg. History of Any Multi-Drug Resistant Organisms: None Reported Past Surgical History: Hysterectomy Past Anesthesia/Blood Transfusion Reactions: No Reported Reaction Past Psychological History: No Psychological Hx Reported Smoking Status: Never smoker Past Alcohol Use History: Occasional Additional Past Alcohol Use History / Comment(s): smoked a few years while in h er 20's Past Drug Use History: None Reported Medications and Allergies Home Medications Medication Instructions Recorded Confirmed Type Albuterol Inhaler [Ventolin Hfa 2 puff INHALATION RT-QID #18 gm 12/19/23 12/19/23 Rx Inhaler] Ambrisentan 5 mg PO DAILY 10/03/23 10/03/23 History Levothyroxine Sodium [Synthroid] 125 mcg PO DAILY 10/03/23 10/03/23 History Pramipexole [Mirapex] 1.5 mg PO HS 10/03/23 10/03/23 History Rivaroxaban [Xarelto] 20 mg PO HS 10/03/23 10/03/23 History Symbicort 200-6mcg 2 puff INHALATION RT-BID 10/03/23 10/03/23 History hydroCHLOROthiazide [Hydrodiuril] 25 mg PO DAILY 10/03/23 10/03/23 History predniSONE [Deltasone] 40 mg PO DIRECTED 10/03/23 10/03/23 History Allergies Allergy/AdvReac Type Severity Reaction Status Date / Time avocado Allergy Anaphylaxis Verified 10/03/23 15:48 Sulfa (Sulfonamide Allergy Rash/Hives Verified 10/03/23 15:48 Antibiotics) Physical Exam Vitals: Vital Signs Temp Pulse Pulse Resp BP BP Pulse Ox 10/03/23 19:03 98.1 F 84 19 129/74 93 L 10/03/23 17:24 98.3 F 84 19 132/74 90 L 10/03/23 16:58 98.6 F 72 20 127/67 88 L 10/03/23 16:17 80 20 10/03/23 16:10 84 18 10/03/23 15:48 79 20 122/66 90 L 10/03/23 12:35 24 10/03/23 11:58 98.4 F 81 22 134/78 85 L Intake and Output 10/03/23 10/03/23 10/03/23 06:59 14:59 22:59 Other: Weight 73.482 kg 73.482 kg Results CBC & Chem 7: 10/04/23 06:04 10/04/23 06:04 Thrombosis Risk Factor Assmnt - Choose All That Apply Each Factor Represents 1 point: Obesity (BMI >25), Varicose veins Each Risk Factor Represents 2 Points: Age 61-74 years Thrombosis Risk Factor Assessment Total Risk Factor Score: 4 Thrombosis Risk Factor Assessment Level: Moderate Risk
--- NOTE | 2023-10-04 13:52 | P.PN ---
Subjective Progress Note Date: 10/04/23 HISTORY OF PRESENT ILLNESS: This is a 73-year-old female with a previous medical history signif icant for primary pulmonary hypertension that was diagnosed back at the age of 50 has been under the care of pulmonary medicine in [facility] in [place], has been following with her dry house attendant on a regular basis supposed to be on oxygen 2 L nasal cannula that she keeps in [place] but she does not have it in [place] she also had a computed tomography scan of the chest with the month ago that did not show any evidence of acute of normalities, apparently the patient also had a history of hypothyroidism, history of gastroesophageal reflux disease, osteoarthritis and osteoporosis, patient presented to the emergency department at [facility] the day before yesterday with increased shortness of breath associated with increased coughing and minimal from production, patient was having significant amount of wheezing, apparently I been taking care of her for quite sometime, now and he asked me if I can give her some oxygen I asked her to go to the ER for evaluation she was offered to send hospital last night however she signed off AGAINST MEDICAL ADVICE, she came back to the office today and she was instructed back to the ER because her oxygenation was around 82% room air, patient was back to the emergency department, had a computed tomography scan of the chest that showed evidence of significant consult with process appear like masslike in the suprahilar in the left as well as the mid lung suggestive of multilobar pneumonia with reactive lymphadenopathy, no evidence of bowel rib was, there was evidence of portal hypertension as well, patient was started on Solumedrol 60 mg IVP every 6 hours, Rocephin 1 g IV piggyback every 24 hours, Zithromax 500 mg piggyback every 24 hours, sputum cultures were obtained, blood culture, also check urine Legionella antigen and mycoplasma antibodies IgG and IgM. Patient was started on DuoNeb treatment nebulization 4 times every day, oxygen support, we will follow the patient very closely pulmonary consultation was obtained from Dr. Dorado 10/04: Patient is laying down in bed she is feeling a bit better today, her oxygen is down to 3 L cannula, she denies any chest pain she is less short of breath, she continues to have some coughing, minimal from production, she is currently on Solu-Medrol 60 mg IV push every 6 hours, Rocephin and Zithromax, blood cultures showing gram-positive cocci suggestive of streptococcus, she is currently on appropriate antibiotic, we will continue to monitor the patient very closely, patient was seen in consultation by Marcello singh, recommended the same treatment plan, continue DuoNeb 3 mg nebulization 4 times every day, continue Symbicort 160/4.5 g 2 puffs inhalation twice every day, continue to wean oxygen down. Patient wanted to be discharged home in the next 24 hours. REVIEW OF SYSTEMS: Constitutional: No documented fever, no chills, no night sweats. No weight change. No weakness, fatigue or lethargy. No daytime sleepiness. EENT: No headache. No blurred vision or double vision, no loss of vision. No loss of Hearing, no ringing in the ears, no dizziness. No nasal drainage or congestion. No epistaxis. No sore throat. Lungs: positive for shortness of breath, positive for cough, minimal sputum production. positive for wheezing. Reports dyspnea with activity. Cardiovascular: No chest pain, no lower extremity edema. No palpitations. No paroxysmal nocturnal dyspnea. No orthopnea. No lightheadedness or dizziness. No syncopal episodes. Abdominal: Reports abdominal pain. No nausea, vomiting. No diarrhea. No constipation. No bloody or tarry stools reports loss of appetite. Genitourinary: No dysuria, increased frequency, urgency. No urinary retention. Musculoskeletal: No myalgias. No muscle weakness, no gait dysfunction, no frequ ent falls. No back pain. No neck pain. Integumentary: No wounds, no lesions. No rash or pruritus. No unusual bruising. No change in hair or nails. Neurologic: No aphasia. No facial droop. No change in mentation. No head injury. No headache. No paralysis. No paresthesia. Psychiatric: No depression. No anxiety. No mood swings. Endocrine: No abnormal blood sugars. No weight change. PHYSICAL EXAMINATION: General: 73-year-old female laying down in bed in moderate respiratory distress. HEENT: Head is atraumatic, normocephalic, pupils were equal round reactive to light and recommendation, extraocular muscle movement were intact, sclera nonicteric, conjunctivae were pale, mucous membranes of the mouth are somewhat dry. Neck: Supple, no JVP, normal carotid upstroke bilaterally, no lymphadenopathy. Chest: Decreased breath sounds at the bases, few rhonchi, positive for expi ratory wheezes, no chest wall tenderness, minimal intercostal retractions. Heart: First heart sound is normal, second heart sound is normal there is systolic ejection murmur 2/6 in the left sternal border. Abdomen: Soft, nontender, nondistended, positive bowel sounds. Extremities: There is no edema no calf tenderness DP +2 bilaterally. Neurologic examination: Patient is awake alert and oriented X 3, cranial nerves II-12 appear grossly intact, muscle power were 5 out of 5 in upper extremities and 5 out of 5 in bilateral lower extremities, deep tendon reflexes normal bilaterally. ASSESSMENT AND PLAN: 1. Multilobar pneumonia likely community-acquired pneumonia in a patient with underlying primary portal hypertension. Patient is on oxygen 3 L nasal cannula, she will be started on Solu-Medrol 60 mg IV push every 6 hours, Rocephin 1 g IV piggyback every 24 hours, Zithromax 500 mg piggyback every 24 hours, DuoNeb 3 mL nebulization 4 times every day, pulmonary consult is noted. 2. Primary pulmonary hypertension. Continue patient on Ambrisantan 5 mg orally once every day, continue patient on Xarelto 20 mg orally once every day, 3. Hypertension and hypertensive cardiovascular disease. Continue hydrochlorothiazide 25 mg orally once every day. 4. Hyperlipidemia. Patient is not taking this at this point in time. 5. Hypothyroidism. Continue Synthroid 125 g orally once every day. 6. Osteoarthritis. Continue Tylenol for pain control. 7. Osteoporosis. Patient will need to be evaluated as an outpatient. 8. Restless leg syndrome. Continue Mirapex 1.5 mg at bedtime. 9. DVT prophylaxis. Continue Xarelto 20 mg orally once every day. 10. GI prophylaxis. Continue patient on Protonix 40 mg orally once every day. 11. Increase activity Objective - Vital Signs Vital signs: Vital Signs Temp 98.5 F 10/04/23 07:20 Pulse 88 10/04/23 11:37 Resp 16 10/04/23 07:20 BP 131/75 10/04/23 07:20 Pulse Ox 92 L 10/04/23 07:20 FiO2 Intake & Output 10/03/23 10/04/23 10/04/23 18:59 06:59 18:59 Output Total 300 Balance -300 Weight 73.482 kg 76 kg 76 kg Output: Urine 300 Other: Voiding Method Toilet Toilet - Labs CBC & Chem 7: 10/04/23 06:04 10/04/23 06:04 Labs: Abnormal Lab Results - Last 24 Hours (Table) 10/04/23 10/04/23 Range/Units 06:04 06:04 WBC 10.77 H (4.50-10.00) X 10*3/uL RBC 4.09 L (4.10-5.20) X 10*6/uL Immature Gran # 0.05 H (0.00-0.04) X 10*3/uL Neutrophils # 9.89 H (1.80-7.70) X 10*3/uL Lymphocytes # 0.65 L (0.90-5.00) X 10*3/uL Monocytes # 0.18 L (0.20-1.00) X 10*3/uL Eosinophils # 0 L (0.04-0.35) X 10*3/uL Glucose 166 H (70-110) mg/dL Calcium 8.3 L (8.7-10.3) mg/dL Total Bilirubin 0.2 L (0.3-1.2) mg/dL Total Protein 5.4 L (6.2-8.2) g/dL Albumin 3.1 L (3.8-4.9) g/dL Albumin/Globulin Ratio 1.35 L (1.60-3.17) Ratio
[2023-10-04] MEDS: AZITHROMYCIN 500 MG in SODIUM CHLORIDE 0.9% 250 ML IVPB SCH (20:41)
[2023-10-04] MEDS: PRAMIPEXOLE 0.5 MG TAB PO SCH (20:41)
[2023-10-04] MEDS: RIVAROXABAN 20 MG TAB PO SCH (20:41)
[2023-10-05] MEDS: methylPREDNISolone SOD SUCCI 125 MG/2 ML VIAL IV SCH ×2 (00:57→05:27)
[2023-10-05] MEDS: LEVOTHYROXINE 125 MCG TAB PO SCH (06:03)
--- NOTE | 2023-10-05 08:26 | XR ---
EXAMINATION TYPE: XR chest 2V DATE OF EXAM: 10/05/2023 COMPARISON: 10/03/2023 HISTORY: 73-year-old female follow-up pneumonia TECHNIQUE: Frontal and lateral views FINDINGS: Heart size is similar. Masslike consolidation left suprahilar region persists. Very large bilateral p ulmonary arteries. Focal right perihilar opacity persists. Patchy retrocardiac opacity may be slightl y increasing. Hyperinflation. Trace effusions on the lateral view. IMPRESSION: 1. Ongoing changes which suggests severe pulmonary hypertension. 2. Ongoing multifocal opacities left suprahilar, right perihilar, and retrocardiac left base. This ma y be slightly increased at the left base. 3. Trace effusions on the lateral view.
[2023-10-05 08:40] LABS: HCT 37.2 % (37.2-46.3); HGB 12.4 g/dL (12.0-15.0); Lymphocytes % (A) 3.4 %; MCH 31.3 pg (27.0-32.0); MCHC 33.3 g/dL (32.0-37.0); MCV 93.9 FL (80.0-97.0); Mean Platelet Volume 9.7 FL (9.5-12.2); NRBC Per 100 WBC 0 X 10*3/uL (0.00-0.01); Neutrophils % (A) 95.1 %; Platelet Count 275 X 10*3/uL (140-440); RBC 3.96 X 10*6/uL (4.10-5.20); RDW 12.2 % (11.5-14.5); WBC 14.89 X 10*3/uL (4.50-10.00)
[2023-10-05 08:41] LABS: Basophils # (A) 0.01 X 10*3/uL (0.00-0.10); Basophils % (A) 0.1 %; Eosinophils # (A) 0 X 10*3/uL (0.04-0.35); Eosinophils % (A) 0 %; Monocytes # (A) 0.14 X 10*3/uL (0.20-1.00); Monocytes % (A) 0.9 %; Neutrophils # (A) 14.17 X 10*3/uL (1.80-7.70)
[2023-10-05] MEDS: AMBRISENTAN 5 MG PO SCH (08:43)
[2023-10-05] MEDS: hydroCHLOROthiazide 25 MG TAB PO SCH (08:48)
[2023-10-05] MEDS: PANTOPRAZOLE 40 MG TABLET PO SCH (08:48)
[2023-10-05] MEDS ORDERED: AMOXIC-POT CLAV 875-125MG 1 EACH TAB PO SCH (09:00)
[2023-10-05] MEDS ORDERED: methylPREDNISolone 4 MG TAB TAPER PO SCH (09:00)
[2023-10-05] MEDS: IPRATROPIUM-ALBUTEROL 3 ML NEB INHALATION SCH ×2 (09:37→12:51)
[2023-10-05] MEDS: SYMBICORT 160-4.5 MCG INHALER INHALATION SCH (09:37)
[2023-10-05 11:26] LABS: ALT 21 U/L (8-44); AST 23 U/L (13-35); Alkaline Phosphatase 50 U/L (41-126); BUN/Creat Ratio 14.67 Ratio (12.00-20.00); Blood Urea Nitrogen 13.2 mg/dL (9.0-27.0); Calcium 8.4 mg/dL (8.7-10.3); Carbon Dioxide 26.7 mmol/L (21.6-31.8); Chloride 104 mmol/L (96-109); Globulin 2.3 g/dL (1.6-3.3); Glucose 149 mg/dL (70-110); Potassium 3.8 mmol/L (3.5-5.5); Sodium 142 mmol/L (135-145); Total Bilirubin 0.3 mg/dL (0.3-1.2); Total Protein 5.3 g/dL (6.2-8.2)
--- NOTE | 2023-10-05 13:14 | P.PN ---
Subjective Progress Note Date: 10/05/23 HISTORY OF PRESENT ILLNESS: This is a 73-year-old female with a previous medical history signif icant for primary pulmonary hypertension that was diagnosed back at the age of 50 has been under the care of pulmonary medicine in [facility] in [place], has been following with her jumpbasting armhole baster on a regular basis supposed to be on oxygen 2 L nasal cannula that she keeps in [place] but she does not have it in [place] she also had a computed tomography scan of the chest with the month ago that did not show any evidence of acute of normalities, apparently the patient also had a history of hypothyroidism, history of gastroesophageal reflux disease, osteoarthritis and osteoporosis, patient presented to the emergency department at [facility] the day before yesterday with increased shortness of breath associated with increased coughing and minimal from production, patient was having significant amount of wheezing, apparently I been taking care of her for quite sometime, now and he asked me if I can give her some oxygen I asked her to go to the ER for evaluation she was offered to send hospital last night however she signed off AGAINST MEDICAL ADVICE, she came back to the office today and she was instructed back to the ER because her oxygenation was around 82% room air, patient was back to the emergency department, had a computed tomography scan of the chest that showed evidence of significant consult with process appear like masslike in the suprahilar in the left as well as the mid lung suggestive of multilobar pneumonia with reactive lymphadenopathy, no evidence of bowel rib was, there was evidence of portal hypertension as well, patient was started on Solumedrol 60 mg IVP every 6 hours, Rocephin 1 g IV piggyback every 24 hours, Zithromax 500 mg piggyback every 24 hours, sputum cultures were obtained, blood culture, also check urine Legionella antigen and mycoplasma antibodies IgG and IgM. Patient was started on DuoNeb treatment nebulization 4 times every day, oxygen support, we will follow the patient very closely pulmonary consultation was obtained from Dr. Dorado 10/04: Patient is laying down in bed she is feeling a bit better today, her oxygen is down to 3 L cannula, she denies any chest pain she is less short of breath, she continues to have some coughing, minimal from production, she is currently on Solu-Medrol 60 mg IV push every 6 hours, Rocephin and Zithromax, blood cultures showing gram-positive cocci suggestive of streptococcus, she is currently on appropriate antibiotic, we will continue to monitor the patient very closely, patient was seen in consultation by Marcello singh, recommended the same treatment plan, continue DuoNeb 3 mg nebulization 4 times every day, continue Symbicort 160/4.5 g 2 puffs inhalation twice every day, continue to wean oxygen down. Patient wanted to be discharged home in the next 24 hours. 10/05: Patient is sitting up and that showed no apparent distress, she is currently on 4 L nasal cannula, she wanted to be discharged home today, she has been tolerating treatment which was short of prednisone, she is to continue Symbicort, we'll arrange for her oxygen, we'll continue with oral antibiotic in the form of Zithromax 500 mg daily for the next 7 days. She will follow-up with me as an outpatient in 2 weeks. REVIEW OF SYSTEMS: Constitutional: No documented fever, no chills, no night sweats. No weight change. No weakness, fatigue or lethargy. No daytime sleepiness. EENT: No headache. No blurred vision or double vision, no loss of vision. No loss of Hearing, no ringing in the ears, no dizziness. No nasal drainage or congestion. No epistaxis. No sore throat. Lungs: positive for shortness of breath, positive for cough, minimal sputum production. positive for wheezing. Reports dyspnea with activity. Cardiovascular: No chest pain, no lower extremity edema. No palpitations. No paroxysmal nocturnal dyspnea. No orthopnea. No lightheadedness or dizziness. No syncopal episodes. Abdominal: Reports abdominal pain. No nausea, vomiting. No diarrhea. No con stipation. No bloody or tarry stools reports loss of appetite. Genitourinary: No dysuria, increased frequency, urgency. No urinary retention. Musculoskeletal: No myalgias. No muscle weakness, no gait dysfunction, no frequent falls. No back pain. No neck pain. Integumentary: No wounds, no lesions. No rash or pruritus. No unusual bruising. No change in hair or nails. Neurologic: No aphasia. No facial droop. No change in mentation. No head injury. No headache. No paralysis. No paresthesia. Psychiatric: No depression. No anxiety. No mood swings. Endocrine: No abnormal blood sugars. No weight change. PHYSICAL EXAMINATION: General: 73-year-old female laying down in bed in moderate respiratory distress. HEENT: Head is atraumatic, normocephalic, pupils were equal round reactive to light and recommendation, extraocular muscle movement were intact, sclera nonicteric, conjunctivae were pale, mucous membranes of the mouth are somewhat dry. Neck: Supple, no JVP, normal carotid upstroke bilaterally, no lymphadenopathy. Chest: Decreased breath sounds at the bases, few rhonchi, positive for expiratory wheezes, no chest wall tenderness, minimal intercostal retractions. Heart: First heart sound is normal, second heart sound is normal there is systolic ejection murmur 2/6 in the left sternal border. Abdomen: Soft, nontender, nondistended, positive bowel sounds. Extremities: There is no edema no calf tenderness DP +2 bilaterally. Neurologic examination: Patient is awake alert and oriented X 3, cranial nerves II-12 appear grossly intact, muscle power were 5 out of 5 in upper extremities and 5 out of 5 in bilateral lower extremities, deep tendon reflexes normal b ilaterally. ASSESSMENT AND PLAN: 1. Multilobar pneumonia likely community-acquired pneumonia in a patient with underlying primary portal hypertension. Patient is on oxygen 3 L nasal cannula, she will be started on Solu-Medrol 60 mg IV push every 6 hours, Rocephin 1 g IV piggyback every 24 hours, Zithromax 500 mg piggyback every 24 hours, DuoNeb 3 mL nebulization 4 times every day, pulmonary consult is noted. 2. Primary pulmonary hypertension. Continue patient on Ambrisantan 5 mg orally once every day, continue patient on Xarelto 20 mg orally once every day, 3. Hypertension and hypertensive cardiovascular disease. Continue hydrochlorothiazide 25 mg orally once every day. 4. Hyperlipidemia. Patient is not taking this at this point in time. 5. Hypothyroidism. Continue Synthroid 125 g orally once every day. 6. Osteoarthritis. Continue Tylenol for pain control. 7. Osteoporosis. Patient will need to be evaluated as an outpatient. 8. Restless leg syndrome. Continue Mirapex 1.5 mg at bedtime. 9. DVT prophylaxis. Continue Xarelto 20 mg orally once every day. 10. GI prophylaxis. Continue patient on Protonix 40 mg orally once every day. 11. Increase activity 12. Home today. With home oxygen. 4 L cannula. Objective - Vital Signs Vital signs: Vital Signs Temp 98.4 F 10/05/23 07:41 Pulse 100 10/05/23 11:12 Resp 16 10/05/23 07:41 BP 122/69 10/05/23 07:41 Pulse Ox 83 L 10/05/23 11:12 FiO2 Intake & Output 10/04/23 10/05/23 10/05/23 18:59 06:59 18:59 Intake Total 100 520 Balance 100 520 Weight 76 kg 76.2 kg Intake: Intake, IV Titration 100 Amount cefTRIAXone 2 gm In 100 Sodium Chloride 0.9% 50 ml @ 100 mls/hr IVPB Q24HR [facility] Rx#:[id number] Oral 520 Other: Voiding Method Toilet Toilet # Voids 3 4 - Labs CBC & Chem 7: 10/05/23 06:19 10/05/23 06:19 Labs: Abnormal Lab Results - Last 24 Hours (Table) 10/05/23 10/05/23 Range/Units 06:19 06:19 WBC 14.89 H (4.50-10.00) X 10*3/uL RBC 3.96 L (4.10-5.20) X 10*6/uL Immature Gran # 0.07 H (0.00-0.04) X 10*3/uL Neutrophils # 14.17 H (1.80-7.70) X 10*3/uL Lymphocytes # 0.50 L (0.90-5.00) X 10*3/uL Monocytes # 0.14 L (0.20-1.00) X 10*3/uL Eosinophils # 0 L (0.04-0.35) X 10*3/uL Glucose 149 H (70-110) mg/dL Calcium 8.4 L (8.7-10.3) mg/dL Total Protein 5.3 L (6.2-8.2) g/dL Albumin 3.0 L (3.8-4.9) g/dL Albumin/Globulin Ratio 1.30 L (1.60-3.17) Ratio Microbiology - Last 24 Hours (Table) 10/04/23 06:10 Gram Stain - Preliminary Sputum 10/03/23 20:42 Blood Culture - Preliminary Blood
--- NOTE | 2023-10-05 13:15 | P.DS ---
Providers Date of admission: 10/03/23 15:29 Expected date of discharge: 10/05/23 Attending physician: Loki Alvarez Consults: 10/03/23 15:31 Consult Physician Stat Consulting Provider: Jasper Dorado Consult Reason/Comments: Lung masses Do you want consulting provider notified?: Yes Primary care physician: Loki Alvarez Hospital Course: HISTORY OF PRESENT ILLNESS: This is a 73-year-old female with a previous medical history significant for primary pulmonary hypertension that was diagnosed back at the age of 50 has been under the care of pulmonary medicine in [facility] in [place], has been following with her county tax assessor on a regular basis supposed to be on oxygen 2 L nasal cannula that she keeps in [place] but she does not have it in [place] she also had a computed tomography scan of the chest with the month ago that did not show any evidence of acute of normalities, apparently the patient also had a history of hypothyroidism, history of gastroe sophageal reflux disease, osteoarthritis and osteoporosis, patient presented to the emergency department at [facility] the day before yesterday with increased shortness of breath associated with increased coughing and minimal from production, patient was having significant amount of wheezing, apparently I been taking care of her for quite sometime, now and he asked me if I can give her some oxygen I asked her to go to the ER for evaluation she was offered to send hospital last night however she signed off AGAINST MEDICAL ADVICE, she came back to the office today and she was instructed back to the ER because her oxygenation was around 82% room air, patient was back to the emergency department, had a computed tomography scan of the chest that showed evidence of significant consult with process appear like masslike in the suprahilar in the left as well as the mid lung suggestive of multilobar pneumonia with reactive lymphadenopathy, no evidence of bowel rib was, there was evidence of portal hypertension as well, patient was started on Solumedrol 60 mg IVP every 6 hours, Rocephin 1 g IV piggyback every 24 hours, Zithromax 500 mg piggyback every 24 hours, sputum cultures were obtained, blood culture, also check urine Legionella antigen and mycoplasma antibodies IgG and IgM. Patient was started on DuoNeb treatment nebulization 4 times every day, oxygen support, we will follow the patient very closely pulmonary consultation was obtained from Dr. Dorado 10/04: Patient is laying down in bed she is feeling a bit better today, her oxygen is down to 3 L cannula, she denies any chest pain she is less short of breath, she continues to have some coughing, minimal from production, she is currently on Solu-Medrol 60 mg IV push every 6 hours, Rocephin and Zithromax, b lood cultures showing gram-positive cocci suggestive of streptococcus, she is currently on appropriate antibiotic, we will continue to monitor the patient very closely, patient was seen in consultation by Marcello singh, recommended the same treatment plan, continue DuoNeb 3 mg nebulization 4 times every day, continue Symbicort 160/4.5 g 2 puffs inhalation twice every day, continue to wean oxygen down. Patient wanted to be discharged home in the next 24 hours. 10/05: Patient is sitting up and that showed no apparent distress, she is currently on 4 L nasal cannula, she wanted to be discharged home today, she has been tolerating treatment which was short of prednisone, she is to continue Symbicort, we'll arrange for her oxygen, we'll continue with oral antibiotic in the form of Zithromax 500 mg daily for the next 7 days. She will follow-up with me as an outpatient in 2 weeks. Discharge diagnoses: 1. Multilobar pneumonia likely community-acquired pneumonia in a patient with underlying primary portal hypertension. 2. Primary pulmonary hypertension. 3. Hypertension and hypertensive cardiovascular disease. 4. Hyperlipidemia. 5. Hypothyroidism. 6. Osteoarthritis. 7. Osteoporosis. 8. Restless leg syndrome 9. Chronic hypoxemic respiratory failure due to COPD/Pulmonary Hypertension Patient Condition at Discharge: Fair Plan - Discharge Summary Discharge Rx Participant: Yes New Discharge Prescriptions: No Action Ambrisentan 5 mg PO DAILY Levothyroxine Sodium [Synthroid] 125 mcg PO DAILY predniSONE [Deltasone] 40 mg PO DIRECTED Pramipexole [Mirapex] 1.5 mg PO HS hydroCHLOROthiazide [Hydrodiuril] 25 mg PO DAILY Rivaroxaban [Xarelto] 20 mg PO HS Albuterol Inhaler [Ventolin Hfa Inhaler] 2 puff INHALATION RT-QID #18 gm Symbicort 200-6mcg 2 puff INHALATION RT-BID Discharge Medication List Albuterol Inhaler [Ventolin Hfa Inhaler] 2 puff INHALATION RT-QID #18 gm 10/03/23 [Rx] Ambrisentan 5 mg PO DAILY 10/03/23 [History] Levothyroxine Sodium [Synthroid] 125 mcg PO DAILY 10/03/23 [History] Pramipexole [Mirapex] 1.5 mg PO HS 10/03/23 [History] Rivaroxaban [Xarelto] 20 mg PO HS 10/03/23 [History] Symbicort 200-6mcg 2 puff INHALATION RT-BID 10/03/23 [History] hydroCHLOROthiazide [Hydrodiuril] 25 mg PO DAILY 10/03/23 [History] predniSONE [Deltasone] 40 mg PO DIRECTED 10/03/23 [History] Follow up Appointment(s)/Referral(s): Loki Alvarez MD [Primary Care Provider] - 1-2 days Jasper Dorado DO [Doctor of Osteopathic Medicine] - 1 Week
--- NOTE | 2023-10-05 14:19 | P.PN ---
Subjective Progress Note Date: 10/05/23 This a very pleasant 73-year-old female patient with a known history of primary pulmonary hypertension diagnosed approximately 20 years ago. She has been maintained on Xarelto and ambrisentan. Has has a history of hypothyroidism, hypertension, remote former smoker. She is originally from [place] but has been here in the [facility] approximate 1 year following her marriage. She has not been seen by a insurance office manager. She states she did have home oxygen [place] but had not required any since she's been here. She presented to our emergency room yesterday morning with complaints of increasing shortness of breath cough and congestion. Denied any sick contacts. Denied any recent travel. Her chest x-ray revealed masslike densities over the right hilum and left suprahilar region concerning for masses and/or adenopathy. Smaller lung nodules not seen radiographically. There is mild diffuse interstitial coarsening of mild hyper inflation suggestive background COPD. No pneumothorax. No focal airspace consolidation. She did have a room air oxygen of 84%. She was recommended CT scan but had refused. The patient was to be admitted but had left AMA. She had spoken to her primary care providers office who instructed her to return to the emergency room which she did. CT angiogram ruled out pulmonary embolus. There was borderline cardiomegaly with severe enlargement of the main right and left pulmonary arteries up to 3.9 cm compatible with pulmonary hypertension. Focal left suprahilar masslike consolidation measuring up to 5.5 cm. Airspace disease anteromedial right midlung. Additional airspace disease left greater than right lung bases with trace effusions. Some scattered mild adenopathy especially in the hilar regions likely reactive. White count 10.7. Hemoglobin 12.8. Platelets 264. Sodium 139. Potassium 3.5. Bicarb 28. BUN 10. Creatinine 0.8. Glucose 166. AST 21. ALT 21. Carcinoembryonic antigen less than 2.0. She is seen today in consultation on the regular medical floor. She is resting quite comfortably in bed. Awake and alert in no acute distress. She is requiring 4 L oxygen per nasal cannula to maintain O2 saturations in the 90s. She is feeling a bit better today compared to yesterday. She is still short of breath with exertion. Still with a loose nonproductive cough. She's been initiated and DuoNeb inhalations, Symbicort, IV Solu-Medrol. Antibiotics in the form of ceftriaxone and azithromycin. She is anticoagulated with Xarelto. Pro- calcitonin pending. The patient is seen today the summer in follow-up on the regular medical floor. She is currently sitting up in bed. Awake and alert in no acute distress. Maintaining O2 saturations in the 90s on 4 L/m per nasal cannula. She denies any fever or chills. No significant cough. Her pro-calcitonin was 0.04. She is currently on DuoNeb inhalations, Pulmicort and Perforomist inhalations, Solu-Medrol. Empiric antibiotics in the form of ceftriaxone and azithromycin. Today's chest x-ray continues to show severe pulmonary hypertension. Multifocal opacities in the left suprahilar right perihilar retrocardiac left base. Trace effusions. Blood culture revealing no growth. Sputum culture revealing no growth. I count 14.5. Hemoglobin 12.4. Platelets 275. Sodium 142. Potassium 3.8. Bicarb 27. BUN 13. Creatinine 0.9. Glucose 149. Legionella screen negative. Objective - Vital Signs Vital signs: Vital Signs Temp 98.4 F 10/05/23 07:41 Pulse 92 10/05/23 13:00 Resp 16 10/05/23 07:41 BP 122/69 10/05/23 07:41 Pulse Ox 83 L 10/05/23 11:12 FiO2 Intake & Output 10/04/23 10/05/23 10/05/23 18:59 06:59 18:59 Intake Total 100 520 Balance 100 520 Weight 76 kg 76.2 kg Intake: Intake, IV Titration 100 Amount cefTRIAXone 2 gm In 100 Sodium Chloride 0.9% 50 ml @ 100 mls/hr IVPB Q24HR [facility] Rx#:[id number] Oral 520 Other: Voiding Method Toilet Toilet # Voids 3 4 - Exam GENERAL EXAM: Alert, 73-year-old female, on 4 L nasal cannula, comfortable in no apparent distress. HEAD: Normocephalic. EYES: Normal reaction of pupils, equal size. NOSE: Clear with pink turbinates. THROAT: No erythema or exudates. NECK: No masses, no JVD. CHEST: No chest wall deformity. LUNGS: Equal air entry with bilateral scattered rhonchi. CVS: S1 and S2 normal with no audible murmur, regular rhythm. ABDOMEN: No hepatosplenomegaly, normal bowel sounds, no guarding or rigidity. SPINE: No scoliosis or deformity SKIN: No rashes CENTRAL NERVOUS SYSTEM: No focal deficits, tone is normal in all 4 extremities. EXTREMITIES: There is no peripheral edema. No clubbing, no cyanosis. Peripheral pulses are intact. - Labs CBC & Chem 7: 10/05/23 06:19 10/05/23 06:19 Labs: Abnormal Lab Results - Last 24 Hours (Table) 10/05/23 10/05/23 Range/Units 06:19 06:19 WBC 14.89 H (4.50-10.00) X 10*3/uL RBC 3.96 L (4.10-5.20) X 10*6/uL Immature Gran # 0.07 H (0.00-0.04) X 10*3/uL Neutrophils # 14.17 H (1.80-7.70) X 10*3/uL Lymphocytes # 0.50 L (0.90-5.00) X 10*3/uL Monocytes # 0.14 L (0.20-1.00) X 10*3/uL Eosinophils # 0 L (0.04-0.35) X 10*3/uL Glucose 149 H (70-110) mg/dL Calcium 8.4 L (8.7-10.3) mg/dL Total Protein 5.3 L (6.2-8.2) g/dL Albumin 3.0 L (3.8-4.9) g/dL Albumin/Globulin Ratio 1.30 L (1.60-3.17) Ratio Microbiology - Last 24 Hours (Table) 10/04/23 06:10 Gram Stain - Preliminary Sputum 10/03/23 20:42 Blood Culture - Preliminary Blood Assessment and Plan Assessment: Acute hypoxemic respiratory failure secondary to an acute community-acquired pneumonia. Her chest x-ray revealed masslike densities over the right hilum and left suprahilar region concerning for masses and/or adenopathy. Smaller lung nodules not seen radiographically. There is mild diffuse interstitial coarsening of mild hyper inflation suggestive background COPD. No pneumothorax. No focal airspace consolidation. She did have a room air oxygen of 84%. She was recommended CT scan but had refused. The patient was to be admitted but had left AMA. She had spoken to her primary care providers office who instructed her to return to the emergency room which she did. CT angiogram ruled out pulmonary embolus. There was borderline cardiomegaly with severe enlargement of the main right and left pulmonary arteries up to 3.9 cm compatible with pul monary hypertension. Focal left suprahilar masslike consolidation measuring up to 5.5 cm. Airspace disease anteromedial right midlung. Additional airspace disease left greater than right lung bases with trace effusions. Some scattered mild adenopathy especially in the hilar regions likely reactive. Pro calcitonin negative at 0.04. Initiated on ceftriaxone and azithromycin Primary pulmonary hypertension diagnosed approximately 20 years ago. Maintained on ambrisentan and intake related with Xarelto. Oxygen dependent Hypothyroidism Hypertension Plan: The patient was seen and evaluated Chest x-ray, labs and medications reviewed Pro calcitonin 0.04 Discontinue ceftriaxone and azithromycin Complete a course of Augmentin Discontinue Solu-Medrol Complete a Medrol Dosepak Most likely will qualify for home oxygen Will require follow-up CAT scans If any procedures required she prefers to do them in [place] She is offered an appointment in our office in 1 week This patient was seen independently by the nurse practitioner I have personally seen and examined the patient, performed the documentation and the assessment and plan as written. Number of minutes spent on the visit: 22.
[2023-10-05 14:42] VITALS: BP 135/75; PULSE 94; RESP 20; TEMP 97.7
[2023-10-06 05:09] LABS: Mycoplasma IgG Antibody (EIA) 1.5 INDEX (<=0.90); Mycoplasma IgM Antibody 0.53 INDEX (<=0.90)
== END 2023-10-05 14:49 | disposition home or self-care (01) | DRG 193 ==
LOC: EC 11:51 → 5NMEDONC 15:29
PROVIDERS: ADMIT Internal Medicine; ATTEND Internal Medicine
DX: J18.9 Pneumonia, unspecified organism (principal); J96.21 Acute and chronic respiratory failure with hypoxia; I27.0 Primary pulmonary hypertension; K76.6 Portal hypertension; J44.0 Chronic obstructive pulmonary disease with (acute) lower respiratory infection; I11.0 Hypertensive heart disease with heart failure; I50.9 Heart failure, unspecified; E78.5 Hyperlipidemia, unspecified; E03.9 Hypothyroidism, unspecified; M81.0 Age-related osteoporosis without current pathological fracture; G25.81 Restless legs syndrome; K21.9 Gastro-esophageal reflux disease without esophagitis; R59.9 Enlarged lymph nodes, unspecified; M19.90 Unspecified osteoarthritis, unspecified site; Z53.29 Procedure and treatment not carried out because of patient's decision for other reasons; Z99.81 Dependence on supplemental oxygen; Z79.890 Hormone replacement therapy; Z79.01 Long term (current) use of anticoagulants; Z79.51 Long term (current) use of inhaled steroids; Z79.899 Other long term (current) drug therapy; Z87.891 Personal history of nicotine dependence; Z88.2 Allergy status to sulfonamides
CPT/HCPCS: 71046; 71275; 80053; 82378; 84145; 85025; 86738; 87040; 87070; 87205; 87449; 94640; 94760; 99285

== ENCOUNTER → 2025-04-07 | Outpatient (CLI) | payer MEDICARE ==
[2025-04-07 15:14] LABS: Basophils # (A) 0.03 X 10*3/uL (0.00-0.10); Basophils % (A) 0.5 %; Eosinophils # (A) 0.16 X 10*3/uL (0.04-0.35); Eosinophils % (A) 2.9 %; HCT 49.3 % (37.2-46.3); Lymphocytes # (A) 1.66 X 10*3/uL (0.90-5.00); Lymphocytes % (A) 30.2 %; MCH 29.4 pg (27.0-32.0); MCHC 32.5 g/dL (32.0-37.0); MCV 90.6 FL (80.0-97.0); Mean Platelet Volume 10.6 FL (9.5-12.2); Monocytes # (A) 0.49 X 10*3/uL (0.20-1.00); Monocytes % (A) 8.9 %; NRBC Per 100 WBC 0 X 10*3/uL (0.00-0.01); Neutrophils # (A) 3.14 X 10*3/uL (1.80-7.70); Neutrophils % (A) 57.3 %; Platelet Count 216 X 10*3/uL (140-440); RBC 5.44 X 10*6/uL (4.10-5.20); RDW 13.2 % (11.5-14.5); WBC 5.49 X 10*3/uL (4.50-10.00)
[2025-04-07 15:26] LABS: ALT 17 U/L (8-44); AST 27 U/L (13-35); Albumin 4.3 g/dL (3.8-4.9); Albumin/Globulin Ratio 1.43 Ratio (1.60-3.17); Alkaline Phosphatase 71 U/L (41-126); BUN/Creat Ratio 16.33 Ratio (12.00-20.00); Blood Urea Nitrogen 14.7 mg/dL (9.0-27.0); Calcium 9.3 mg/dL (8.7-10.3); Carbon Dioxide 26.1 mmol/L (21.6-31.8); Chloride 100 mmol/L (96-109); Chol/HDL Ratio 2.58 Ratio; Glucose 97 mg/dL (70-110); LDL Cholesterol,Calculated 46.4 mg/dL (0.0-131.0); Potassium 3.9 mmol/L (3.5-5.5); Sodium 139 mmol/L (135-145); Total Bilirubin 0.7 mg/dL (0.3-1.2); Total Protein 7.3 g/dL (6.2-8.2)
[2025-04-07 20:06] LABS: Hepatitis B Surface Antigen Nonreactive (Nonreactive)
[2025-04-07 22:25] LABS: Hepatitis B Surface AB- Quant 3.5 mIU/mL; Hepatitis B Surface Antibody Negative (Negative)
[2025-04-08 00:09] LABS: Mumps Virus IgG Ab Interp Positive (Negative); Mumps Virus IgG Antibody 4.1 AI
== END | disposition home or self-care (01) ==
LOC: LABWHC1 12:15
DX: I27.20 Pulmonary hypertension, unspecified (principal); E03.9 Hypothyroidism, unspecified; E78.2 Mixed hyperlipidemia; R35.0 Frequency of micturition
CPT/HCPCS: 36415; 80053; 80061; 83036; 84443; 85025; 86480; 86704; 86706; 86735; 86762; 86765; 86780; 87340